=== PATIENT | male | born 1970 | race Caucasian/White ===

== ENCOUNTER 2023-07-30 16:03 | Emergency (ER) | payer OTHER ==
[2023-07-30] MEDS ORDERED: Diphtheria/Tetanus Toxoids,Adult (Td) 0.5 ML SDV IM ONE (17:15)
[2023-07-30] MEDS ORDERED: Lidocaine 1% with EPINEPHrine 1:100,000 20 ML MDV INJECT SCH (17:30)
[2023-07-30] MEDS ORDERED: Bacitracin Oint 1 GM U/D Packet TOP SCH (17:30)
== END 2023-07-30 17:05 | disposition home or self-care (01) ==
LOC: LB.ED 16:03
DX: S60.451A Superficial foreign body of left index finger, initial encounter (principal); E66.9 Obesity, unspecified; Z23 Encounter for immunization; Z68.30 Body mass index [BMI] 30.0-30.9, adult; W45.8XXA Other foreign body or object entering through skin, initial encounter
CPT/HCPCS: 90471; 90714; 99282; 99283-25